=== PATIENT | female | born 1985 | race Caucasian/White ===

== ENCOUNTER 2020-03-09 08:33 | Outpatient (CLI) | payer OTHER ==
[~2020-03-09 08:33] MED LIST: BUPIVACAINE/PF 0.5% ONE; LIDOCAINE 1%, 20ML ONE; ROPivacaine/PF 0.2%, 10 ML ONE; SODIUM BICARBONATE 4.2%, 5ML ONE
[2020-03-09] MEDS ORDERED: GADOTERATE 2.5 MMOL/5 ML VIAL ONE (09:00)
[2020-03-09] MEDS ORDERED: OMNIPAQUE 300 MG/ML, 10ML VIAL ONE ×2 (09:00→10:13)
[2020-03-09] MEDS ORDERED: GADOBUTROL 10 MMOL/10 ML VIAL ONE (10:13)
== END 2020-03-09 23:59 | disposition home or self-care (01) ==
LOC: RAD 08:33
PROVIDERS: ATTEND Orthopaedic Surgery
DX: M25.552 Pain in left hip (principal)
CPT/HCPCS: 27093; 73525; 73722; A9575; A9585; J3490; Q9967; J2795